=== PATIENT | female | born 1985 | race Caucasian/White ===

== ENCOUNTER 2018-02-10 06:59 | Inpatient (IN) | payer OTHER, SELFPAY ==
[2018-02-10] MEDS: Lactated Ringers 1,000 ML 50 ML IV ×3 (07:25→13:26)
[2018-02-10 07:33] VITALS: BMI 30.3
[2018-02-10 07:52] LABS: Hematocrit 35.4 % (37-47); Hemoglobin 12.2 g/dl (12.0-15.0); Mean Corp Hgb Conc 34.5 g/gl (32-36); Mean Corpuscular Hgb 30.7 pg (27.0-32.0); Mean Corpuscular Volume 88.9 fL (81-99); Mean Platelet Vol. 10.5 fl (6.2-12.0); Platelet Count 164 K/mm3 (150-450); RBC Distribution Width CV 14.1 % (11.6-14.6); Red Blood Count 3.98 M/mm3 (4.2-5.4); White Blood Count 6.9 K/mm3 (4.4-11.0)
[2018-02-10 07:53] LABS: Scan Indicated on CBC? Y/N NO
[2018-02-10 08:05] LABS: Bedside Glucose 76 mg/dL (70-110)
[2018-02-10] MEDS: Oxytocin 30 units/NS 500 ml 30 UNITS/500 ML IV.SOLN IV (08:07)
[2018-02-10 08:56] LABS: Bedside Glucose 80 mg/dL (70-110)
--- NOTE | 2018-02-10 11:09 | PCM.HP.OB ---
History Date of Admission: 02/10/18 Final TANIYA: 02/10/18 Final TANIYA Source: US <20 weeks Gestational age: 40 Weeks and 0 Days History of this : 32-year-old 2 para 1 female presents at 40 weeks with EDC of 03/2018 by first trimester ultrasound alone presents for induction of labor due to well-controlled gestational diabetes class A1. She has had no significant problems with this Pertinent Past Medical History: Asthma, atrial septal defect as a child that was repaired, Past surgical history: Repair of septal defect as a child Family medical history: Patient's mother has factor V Leyden mutation and has had strokes Her 's family has family history of cystic fibrosis Obstetrical history: One previous without difficulty current rpegnancy complicated to date by GDMA1 Allergies No Known Allergies Allergy (Verified 02/10/18 07:33) Current Medications Acetaminophen (Tylenol) 325 - 650 mg PO Q4H PRN PRN PRN Reason: PAIN OR FEVER >100.4F Al Hydroxide/Mg Hydroxide (Mylanta Ii) 15 - 30 ml PO Q4H PRN PRN PRN Reason: INDIGESTION Citric Acid/Sodium Citrate (Bicitra) 30 ml PO UD PRN Dextrose (D50w Syringe) 0 gm IV X1 PRN; Protocol PRN Reason: Hypoglycemia Glucagon () 1 mg IM .X1 PRN PRN Reason: Hypoglycemia Oxytocin/Sodium Chloride () 30 units in 500 mls @ 1 mls/hr IV .Q500H [facility] Last Admin: 02/10/18 08:07 Dose: 1 mls/hr Lactated Ringer's () 1,000 mls @ 50 mls/hr IV .Q20H [facility] Last Admin: 02/10/18 10:04 Dose: 50 mls/hr Penicillin G Potassium/Dextrose (Penicillin G Potassium) 3 mu in 50 mls @ 100 mls/hr IV Q4H [facility] Nalbuphine HCl (Nubain) 5 - 10 mg IV Q3H PRN PRN PRN Reason: PAIN (4-10/10) Ondansetron HCl (Zofran) 4 mg IV Q8H PRN PRN PRN Reason: NAUSEA Promethazine HCl (Phenergan Iv) 6.25 - 12.5 mg IV Q4H PRN PRN; Protocol PRN Reason: IF NAUSEA PERSISTS Sodium Chloride () 5 - 15 ml IV UD [facility] Last Admin: 02/10/18 07:58 Dose: Not Given Smoking Status: Never smoker Alcohol: Occasional - not when Drug Use: none Number of Fetus(es): 1 Review of Systems Constitutional: Denies: Anorexia, Fever Cardiovascular: Denies: Chest Pain Respiratory: Denies: Cough Skin: Denies: Rash Physical Exam General: Alert, Cooperative, No apparent distress Cardiovascular: Regular rate Lungs: Normal air movement Abdomen: Soft, Non Tender, Non-Distended, Gravid, Appropriate for Gestational Age Extremities:: No edema Estimated gestational size: Appropriate for gestational size Presentation: Cephalic Cervix Dilation (cm): 3 - upon admission Station: -2 Effacement (%): 60 Assessment/Plan Cervix is now 4, 70, -2 station, artificial rupture membranes was performed with return of moderate amount of clear fluid. Estimated weight is less than 4500 g and pelvis clinically adequate to expect vaginal delivery. Estimated weight by ultrasound approximately 50th percentile Assessment and plan: 32-year-old 2 para 1 female at 40 weeks gestation for induction of labor due to gestational diabetes #1. Pitocin induction of labor and expect vaginal delivery may have epidural or nitrous oxide or Nubain as needed for pain control Risk benefits and alternatives to injection were discussed with patient her questions were answered to her satisfaction, and she desires to proceed.
--- NOTE | 2018-02-10 11:19 | HP.PCM_ITS ---
History Date of Admission: 02/10/18 Final TANIYA: 02/10/18 Final TANIYA Source: US <20 weeks Gestational age: 40 Weeks and 0 Days History of this : 32-year-old 2 para 1 female presents at 40 weeks with EDC of 03/2018 by first trimester ultrasound alone presents for induction of labor due to well- controlled gestational diabetes class A1. She has had no significant problems with this Pertinent Past Medical History: Asthma, atrial septal defect as a child that was repaired, Past surgical history: Repair of septal defect as a child Family medical history: Patient's mother has factor V Leyden mutation and has had strokes Her 's family has family history of cystic fibrosis Obstetrical history: One previous without difficulty current rpegnancy complicated to date by GDMA1 Allergies No Known Allergies Allergy (Verified 02/10/18 07:33) Current Medications Acetaminophen (Tylenol) 325 - 650 mg PO Q4H PRN PRN PRN Reason: PAIN OR FEVER >100.4F Al Hydroxide/Mg Hydroxide (Mylanta Ii) 15 - 30 ml PO Q4H PRN PRN PRN Reason: INDIGESTION Citric Acid/Sodium Citrate (Bicitra) 30 ml PO UD PRN Dextrose (D50w Syringe) 0 gm IV X1 PRN; Protocol PRN Reason: Hypoglycemia Glucagon () 1 mg IM .X1 PRN PRN Reason: Hypoglycemia Oxytocin/Sodium Chloride () 30 units in 500 mls @ 1 mls/hr IV .Q500H [facility] [place] Last Admin: 02/10/18 08:07 Dose: 1 mls/hr Lactated Ringer's () 1,000 mls @ 50 mls/hr IV .Q20H [facility] [place] Last Admin: 02/10/18 10:04 Dose: 50 mls/hr Penicillin G Potassium/Dextrose (Penicillin G Potassium) 3 mu in 50 mls @ 100 mls/hr IV Q4H [facility] Nalbuphine HCl (Nubain) 5 - 10 mg IV Q3H PRN PRN PRN Reason: PAIN (4-10/10) Ondansetron HCl (Zofran) 4 mg IV Q8H PRN PRN PRN Reason: NAUSEA Promethazine HCl (Phenergan Iv) 6.25 - 12.5 mg IV Q4H PRN PRN; Protocol PRN Reason: IF NAUSEA PERSISTS Sodium Chloride () 5 - 15 ml IV UD [facility] Last Admin: 02/10/18 07:58 Dose: Not Given Smoking Status: Never smoker Alcohol: Occasional - not when Drug Use: none Number of Fetus(es): 1 Review of Systems Constitutional: Denies: Anorexia, Fever Cardiovascular: Denies: Chest Pain Respiratory: Denies: Cough Skin: Denies: Rash Physical Exam General: Alert, Cooperative, No apparent distress Cardiovascular: Regular rate Lungs: Normal air movement Abdomen: Soft, Non Tender, Non-Distended, Gravid, Appropriate for Gestational Age Extremities:: No edema Estimated gestational size: Appropriate for gestational size Presentation: Cephalic Cervix Dilation (cm): 3 - upon admission Station: -2 Effacement (%): 60 Assessment/Plan Cervix is now 4, 70, -2 station, artificial rupture membranes was performed with return of moderate amount of clear fluid. Estimated weight is less than 4500 g and pelvis clinically adequate to expect vaginal delivery. Estimated weight by ultrasound approximately 50th percentile Assessment and plan: 32-year-old 2 para 1 female at 40 weeks gestation for induction of labor due to gestational diabetes #1. Pitocin induction of labor and expect vaginal delivery may have epidural or nitrous oxide or Nubain as needed for pain control Risk benefits and alternatives to injection were discussed with patient her questions were answered to her satisfaction, and she desires to proceed.
[2018-02-10 12:41] LABS: Bedside Glucose 81 mg/dL (70-110)
[2018-02-10] MEDS: fentaNYL-bupivacaine (epidural) 100 ML BAG EPIDURAL (13:28)
[2018-02-10] MEDS: Oxytocin 30 units/NS 500 ml 30 UNITS/500 ML IV.SOLN 334 UNITS IV (15:11)
--- NOTE | 2018-02-10 15:32 | PCM.OB.VAG ---
Vaginal Delivery Maternal Presentation: Medically Indicated Induction Method of Induction: Pitocin, Amniotomy Amniotic Membrane Rupture Type: Artificial Amniotic Fluid Description: Clear Final TANIYA: 02/10/18 Final TANIYA Source: US <20 weeks Gestational age: 40 Weeks and 0 Days Date of Procedure: 02/10/18 Pre-Operative Diagnosis: GDM A1, labor Post-Operative Diagnosis: same Surgery/ Procedure Performed: Spontaneous Vaginal Delivery Type of Anesthesia: Epidural Description of Procedure: A vigorous male infant was delivered away over a second-degree perineal laceration. The remainder the was delivered with maternal pushing and gentle traction only in less than 15 seconds. The Pitocin infusion was initiated for active management of the third stage. The cord was clamped and cut after 1 minute. The was attended to by the waiting nursing staff. The placenta was delivered spontaneously and intact. The cervix and vagina were intact. The second-degree perineal laceration was repaired with 3-0 Vicryl suture in a running standard fashion. Sponge and needle counts were correct. A vaginal sweep was completed by me. Presentation: NIGEL Placental Delivery Description: Spontaneous Placenta Disposition: [facility] Cord Vessel Description: 3 Vessels Cord Entanglement: None Drain: Maldonado to straight drain Estimated Blood Loss: 350 cc A gender: Male (1 minute): 8 (5 minute): 9 Episiotomy Description: None Laceration: 2nd degree Medications given after delivery: IV Pitocin Complications: None
[2018-02-10] MEDS: Oxytocin 30 units/NS 500 ml 30 UNITS/500 ML IV.SOLN 167 UNITS IV (15:41)
[2018-02-10 16:25] LABS: Bedside Glucose 82 mg/dL (70-110)
[2018-02-10 17:35] LABS: Bedside Glucose 64 mg/dL (70-110)
[2018-02-10 18:06] VITALS: BP 127/60; PULSE 58; RESP 16; TEMP 36.6; O2SAT 99
[2018-02-10] MEDS: Naproxen 250 MG Tablet PO (22:34)
[2018-02-11] VITALS: BP 102/57; PULSE 62; RESP 16; TEMP 36.6
[2018-02-11 04:00] VITALS: PULSE 60; RESP 15; TEMP 36.6
[2018-02-11 07:51] LABS: Bedside Glucose 67 mg/dL (70-110)
[2018-02-11] MEDS: Naproxen 250 MG Tablet PO ×2 (07:57→17:21)
--- NOTE | 2018-02-11 08:54 | PN.OBGYN_ITS ---
Subjective: pain well controlled, average lochia. is going well - Physical Exam General: Alert, Cooperative, No apparent distress Vital Signs Temp Pulse Resp BP Pulse Ox 97.9 F 60 15 102/57 L 99 02/11/18 04:00 02/11/18 04:00 02/11/18 04:00 02/11/18 00:00 02/10/18 18:06 Oxygen Delivery Method Room Air Weight: 82.645 kg Body Mass Index (BMI) 30.3 Intake and Output for Last 24 Hours 02/09/18 02/10/18 02/11/18 23:59 23:59 23:59 Intake Total 1605 / 1605 Output Total 1450 / 1450 450 / 450 Balance 155 / 155 -450 / -450 Laboratory Tests Past 24 Hrs 02/10/18 02/10/18 07:25 18:30 Blood Type B NEGATIVE Antibody Screen NEGATIVE Screen NEGATIVE Baby's Blood Type O POSITIVE Baby's GARRISON NEGATIVE POC Glucose 02/11/18 02/10/18 02/10/18 07:45 16:17 12:29 POC Glucose 67 L 82 81 02/10/18 02/10/18 09:50 08:51 POC Glucose 64 L 80 Medical Necessity - Tobacco Use Smoking Status: Never smoker Assessment/Plan PPD#1 doing well routine senior living tomorrow due to G BS + status
--- NOTE | 2018-02-11 08:56 | DCINST_ITS ---
Discharge Diet: No Restrictions Discharge Activity: Return to Normal Activity, May not drive while taking narcotic pain medications., May Shower May resume sexual activity in: 4-6 weeks Additional Activity Instructions:: Nothing in the vagina for 4-6 weeks. You may return to work/school in 6 weeks. Call your doctor if your incision/area has: Continuous Slow Oozing, Sudden Increased Bleeding, Increased Pain/ Swelling, Increased Redness, Foul Smelling Discharge Additional Instructions: If you experience any of the following, contact your healthcare provider. * Bleeding that soaks a pad every hour for 2 hours * Fever 100.4 or higher * Unrelieved incision or abdominal pain * Swelling, redness, discharge or bleeding from your incision or episiotomy site * Your incision begins to separate * Problems urinating (including inability to urinate or burning while urinating) . * Visual changes * Severe headache * Flu-like symptoms * Pain or redness in one of both of your breasts * Pain, warmth, tenderness or swelling in your legs, especially the calf area * Frequent nausea and vomiting * Symptoms of depression or anxiety If you experience any of the following, call 911 or go to the nearest Emergency Room. * Chest pain * Problems breathing * Seizure activity * Partial or complete paralysis of a body part, slurred speech, weakness or drooping of the face, or a sudden inability to walk or hold your balance Allergies/Adverse Reactions: Allergies No Known Allergies Allergy (Verified 02/10/18 07:33) Medications to take at Discharge Vits [Prenatabs FA ] 1 tablet PO DAILY 06/26/14 Ibuprofen [Motrin] 600 mg PO Q6H PRN #60 tab 02/11/18 The following prescriptions were given: Ibuprofen [Motrin] 600 mg PO Q6H PRN #60 tab PRN Reason: Pain Orders to be completed after discharge: Electric breast pump Location: None Selected Please Follow Up With: Leana Olmos MD - [phone] When: Call to make an appointment with your doctor in 6 weeks. If you had elevated Blood Pressure or 4th degree laceration you will need to be seen in 2 weeks. Primary Care Physician: Twan Montemayor [Primary Care Provider] -
[2018-02-11 09:00] VITALS: BP 119/68; PULSE 70; RESP 18; TEMP 36.4
[2018-02-11 15:53] VITALS: BP 115/70; PULSE 50; RESP 16; TEMP 36.7
[2018-02-11 19:50] VITALS: BP 120/64; PULSE 52; RESP 18; TEMP 36.8; O2SAT 96
[2018-02-12 02:00] VITALS: BP 114/66; PULSE 48; RESP 18; TEMP 36.6; O2SAT 98
[2018-02-12] MEDS: Acetaminophen 500 MG Tablet 1000 MG PO (02:07)
[2018-02-12] MEDS: Naproxen 250 MG Tablet PO (06:03)
--- NOTE | 2018-02-12 06:39 | PCM.PN.OB ---
Subjective: Patient sitting up in bed finishing discharge paperwork and watching discharge video teaching. Patient desires discharge to home today. Denies any other issues or concerns Objective: breasts soft, filling, + colostrum able to be hand expressed scant rubra lochia, perineum well-approximated - Physical Exam General: Alert, Oriented x3, Cooperative HEENT: Atraumatic, Normocephalic Lungs: Clear to auscultation, Normal air movement Cardiovascular: Regular rate, No murmurs Abdomen: Soft, Non Tender, No Hepato-splenomegaly, Passing Flatus Extremities: No edema, Capillary Refill Less than 3 Seconds, No Calf Tenderness Skin: No rashes, No breakdown Neurological: Cranial nerves II-XII grossly intact Psych/Mental Status: Normal Affect, Appropriate, Alert and oriented to time, place, person, mood and affect Vital Signs Temp Pulse Resp BP Pulse Ox 97.9 F 48 L 18 114/66 98 02/12/18 02:00 02/12/18 02:00 02/12/18 02:00 02/12/18 02:00 02/12/18 02:00 Oxygen Delivery Method Room Air Weight: 182 lb 3.2 oz Body Mass Index (BMI) 30.3 Intake and Output for Last 24 Hours 02/10/18 02/11/18 02/12/18 23:59 23:59 23:59 Intake Total 1605 / 1605 Output Total 1450 / 1450 450 / 450 Balance 155 / 155 -450 / -450 POC Glucose 02/11/18 07:45 POC Glucose 67 L Medical Necessity - Tobacco Use Smoking Status: Never smoker Assessment/Plan A: 32 y/o s/p , PPD #2, Normal PP Course P: 1) Discharge patient to home pending discharge 2) Anticipatory discharge teaching done 3) RTC for 6 week PP visit to [facility] for 6 wk PP visit Reta Neves CNM
--- NOTE | 2018-02-12 06:49 | PN.OBGYN_ITS ---
Subjective: Patient sitting up in bed finishing discharge paperwork and watching discharge video teaching. Patient desires discharge to home today. Denies any other issues or concerns Objective: breasts soft, filling, + colostrum able to be hand expressed scant rubra lochia, perineum well-approximated - Physical Exam General: Alert, Oriented x3, Cooperative HEENT: Atraumatic, Normocephalic Lungs: Clear to auscultation, Normal air movement Cardiovascular: Regular rate, No murmurs Abdomen: Soft, Non Tender, No Hepato-splenomegaly, Passing Flatus Extremities: No edema, Capillary Refill Less than 3 Seconds, No Calf Tenderness Skin: No rashes, No breakdown Neurological: Cranial nerves II-XII grossly intact Psych/Mental Status: Normal Affect, Appropriate, Alert and oriented to time, place, person, mood and affect Vital Signs Temp Pulse Resp BP Pulse Ox 97.9 F 48 L 18 114/66 98 02/12/18 02:00 02/12/18 02:00 02/12/18 02:00 02/12/18 02:00 02/12/18 02:00 Oxygen Delivery Method Room Air Weight: 182 lb 3.2 oz Body Mass Index (BMI) 30.3 Intake and Output for Last 24 Hours 02/10/18 02/11/18 02/12/18 23:59 23:59 23:59 Intake Total 1605 / 1605 Output Total 1450 / 1450 450 / 450 Balance 155 / 155 -450 / -450 POC Glucose 02/11/18 07:45 POC Glucose 67 L Medical Necessity - Tobacco Use Smoking Status: Never smoker Assessment/Plan A: 32 y/o s/p , PPD #2, Normal PP Course P: 1) Discharge patient to home pending discharge 2) Anticipatory discharge teaching done 3) RTC for 6 week PP visit to [facility] for 6 wk PP visit Reta Neves CNM
[2018-02-12 08:34] VITALS: BP 120/58; PULSE 58; RESP 16; TEMP 36.6; O2SAT 99
== END 2018-02-12 10:10 | disposition home or self-care (01) | DRG 775 ==
PROVIDERS: Admitting Provider Obstetrics & Gynecology; Family Provider Family Medicine; PCP Family Medicine; Visit Provider Obstetrics & Gynecology
DX: O24.420 Gestational diabetes mellitus in childbirth, diet controlled (principal); O70.1 Second degree perineal laceration during delivery; Z37.0 Single live birth; Z3A.40 40 weeks gestation of pregnancy
CPT/HCPCS: 59025; 59050; 82962; 85027; 85461; 86850; 86900; 90384; 99218; J7120; G0378; J2790

== ENCOUNTER → 2024-09-01 | Outpatient (CLI) | payer OTHER, SELFPAY ==
--- NOTE | 2024-09-01 | IMM_PTH ---
PATHOLOGY RESULTS PATIENT: SEAN LILLY LOC: [facility] U#:[id number] AGE/SX: 39/F ROOM: RE09/01/[address]: Dr. Emeli Alarcon DO : 1985 BED: DIS: 09/01/2024 SPEC #: [id number] RECD: 09/05/24 11:31 STATUS: ALYSSA RAFFAELE #: [id number] JEANMARIE: 09/01/24 00:[address]: Emeli Alarcon DEPT: IMMUNOHISTOCHEMISTRY RECD BY: Eliecer Bianchi ENTERED: 09/05/24 11:31 SP TYPE: IMMUNO OTHR DR: Dr. Twan Montemayor MD Tissues: Uterine cervix, NOS Procedures: p16 (initial) KI-67 (add) PHYSICIAN & INSTITUTION [place] [id number] SPECIMEN INFORMATION: Tissue Source: 4o'clock cervix Clinical Info: HPV+ Specimen Number: [id number] CPT code: 56098,52680 METHODOLOGY: Deparaffinized sections of prefer/formalin-fixed tissue or PAP/DQ stained slides are incubated with monoclonal/polyclonal antibodies/oligonucleotide probes. Localization is made via biotin free immunoperoxidase method. Appropriate controls are performed and reacted as expected. Results on target cell population are indicated in the following table: RESULTS: ANTIBODY / CLONE RESULT P16 (E6H4) positive, rare cells, patchy staining Ki-67 (30-9) positive, basal layer only These tests were developed and their performance characteristics determined by [facility]. They may not have been cleared or approved by the U.S. Food and Drug Administration. The FDA has determined that such clearance or approval is not necessary. The above immunohistochemical/dualISH markers are ordered and reviewed by the Pathologist. INTERPRETATION: Cervix, 4o'clock, biopsy: Negative for dysplasia. 09/06/2024
--- NOTE | 2024-09-01 14:00 | CER_PTH ---
PATHOLOGY RESULTS PATIENT: SEAN [facility]ILLY [id number] AGE/SX: 39/F ROOM: RE09/01/[address]: Dr. Emeli Alarcon DO : 1985 BED: DIS: 09/01/2024 SPEC #: [id number] RECD: 09/01/24 15:05 STATUS: ALYSSA YENJony #: [id number] JEANMARIE: 09/01/24 14:[address]: Emeli Alarcon DEPT: SURGICAL PATHOLOGY RECD BY: Gordo Kaur ENTERED: 09/04/24 09:16 SP TYPE: CERV OTHR DR: Dr. Twan Montemayor MD Tissues: Uterine cervix, NOS Procedures: Surgery Specimen Level IV HEADER OPERATION: Colposcopy PRE-OP DIAGNOSIS: HPV+ TISSUE SUBMITTED: 4o'clock cervix MICROSCOPIC DIAGNOSIS Cervix, 4o'clock, biopsy: Negative for dysplasia. Acute and chronic inflammation and squamous dysplasia. See comment. 09/05/2024 COMMENT Immunohistochemistry ([id number]) for surrogate HPV marker (p16) supports the above diagnosis. This case has been reviewed in consultation with Dr. Patrick who concurs with the above diagnosis. IDC:PW MICROSCOPIC DESCRIPTION Slides are reviewed. GROSS DESCRIPTION Received in fixative is one container labeled with the patient's name and designated 4o'clock. The specimen consists of two irregular fragments of light mejia soft tissue that in aggregate measures 0.4 x 0.3 x 0.1 cm. The specimen is totally submitted in one cassette. 09/04/2024 TC:5 CPT:25300
--- NOTE | 2024-09-01 14:00 | CER_PTH ---
PATHOLOGY RESULTS PATIENT: [facility] LILLY [id number] AGE/SX: 39/F ROOM: RE09/01/[address]: Dr. Emeli Alarcon DO : 1985 BED: DIS: 09/01/2024 SPEC #: [id number] RECD: 09/01/24 15:05 STATUS: ALYSSA YENJony #: [id number] JEANMARIE: 09/01/24 14:[address]: Emeli Alarcon DEPT: SURGICAL PATHOLOGY RECD BY: Gordo Kaur ENTERED: 09/04/24 09:16 SP TYPE: CERV OTHR DR: Dr. Twan Montemayor MD Tissues: Uterine cervix, NOS Procedures: Surgery Specimen Level IV HEADER OPERATION: Colposcopy PRE-OP DIAGNOSIS: HPV+ TISSUE SUBMITTED: 4o'clock cervix MICROSCOPIC DIAGNOSIS Cervix, 4o'clock, biopsy: Negative for dysplasia. Acute and chronic inflammation and squamous metaplasia. See comment. 09/05/2024 COMMENT Immunohistochemistry ([id number]) for surrogate HPV marker (p16) supports the above diagnosis. This case has been reviewed in consultation with Dr. Patrick who concurs with the above diagnosis. IDC:PW MICROSCOPIC DESCRIPTION Slides are reviewed. GROSS DESCRIPTION Received in fixative is one container labeled with the patient's name and designated 4o'clock. The specimen consists of two irregular fragments of light mejia soft tissue that in aggregate measures 0.4 x 0.3 x 0.1 cm. The specimen is totally submitted in one cassette. 09/04/2024 TC:5 CPT:49926
--- OUTSIDE RECORDS SUMMARY | 2024-09-01 15:25 | XMS RPT_ITS | CCD ---
Author Organization [facility] CliniSyme Care Team Providers Care Plant Maintenance Supervisor Name Role Phone SATELLITE BEACH, PACO Attending Unavailable HILLS, PACO Primary Care Unavailable HILLS, PACO Admitting Unavailable ELSA PEÑA DR Attending Unavailable CASEY, ELSA HERNANDEZ Primary Care Unavailable CASEY, ELSA HERNANDEZ Admitting Unavailable HILLS, PACO Consulting Unavailable PROVIDER, UNKNOWN Consulting Unavailable HILLS, PACO Attending Unavailable HILLS, PACO Consulting Unavailable S[place]LLITE [place], PACO Primary Care Unavailable S[place], PACO Admitting Unavailable PROVIDER, UNKNOWN Consulting Unavailable S[place], PACO Attending Unavailable S[place]LL[place], PACO Admitting Unavailable S[place], PACO Consulting Unavailable [place], PACO Primary Care Unavailable PROVIDER, UNKNOWN Consulting Unavailable HILLS, PACO Attending Unavailable HILLS, PACO Admitting Unavailable S[place]LL[place], PACO Consulting Unavailable S[place], PACO Primary Care Unavailable PROVIDER, UNKNOWN Consulting Unavailable S[place], PACO Attending Unavailable HILLS, PACO Consulting Unavailable HILLS, PACO Primary Care Unavailable HILLS, PACO Admitting Unavailable PROVIDER, UNKNOWN Consulting Unavailable HILLS, PACO Attending Unavailable S[place]LL[place], PACO Admitting Unavailable S[place]LL[place], PACO Consulting Unavailable S[place], PACO Primary Care Unavailable PROVIDER, UNKNOWN Consulting Unavailable S[place], PACO Attending Unavailable S[place], PACO Consulting Unavailable S[place], PACO Primary Care Unavailable [place], PACO Admitting Unavailable PROVIDER, UNKNOWN Consulting Unavailable Problems Active Problems Problem Classification Problem Date Documented Da te Episodic/Chronic Nutritional deficiencies (1 source) Vitamin D deficiency, unspecified; Translations: [Vitamin D deficiency, unspecified] Onset: 01-14-2024 Chronic Past or Other Problems Problem Classification Problem Date Documented Date Episodic/Chronic Heart valve disorders (1 source) Cardiac murmur, unspecified; Translations: [Cardiac murmur, unspecified] Onset: 01-25-2024 Episodic Other aftercare (1 source) Other roasterman (current) drug therapy; Translations: [Other retirement (current) drug therapy] Onset: 01-31-2024 Episodic Other circulatory disease (3 sources) Personal history of other diseases of the circulatory system; Translations: [Personal history of other diseases of the circulatory system] Onset: 01-25-2024 Episodic Other non-traumatic joint disorders (1 source) Pain in right shoulder; Translations: [Pain in right shoulder] Onset: 02-29-2024 Episodic Other screening for suspected conditions (not mental disorders or infectious disease) (3 sources) Encounter for screening for cardiovascular disorders; Translations: [Encounter for screening for cardiovascular disorders] Onset: 01-14-2024 Episodic Residual codes; unclassified (2 sources) Family history of diseases of the blood and blood-forming organs and certain disorders involving the immune mechanism; Translations: [Family history of diseases of the blood and blood-forming organs and certain disorders involving the immune mechanism] Onset: 01-25-2024 Episodic Sprains and strains (4 sources) Superior glenoid labrum lesion of right shoulder, initial encounter; Translations: [Unspecified sprain of right shoulder joint, initial encounter] Onset: 02-29-2024 Episodic Results Test Name Value Interpretation Reference Range Facil ity FACTOR V LEIDEN/PCR [CCL]on 01-28-2024 FV Leiden Report Factor V Leiden PCR Normal [facility] Comment on above: Result Comment: Ephraim melgoza Accession Number: [id number] Result: HETEROZYGOUS FOR Factor V Leiden Interpretation: The DNA sample is positive for one copy of the c.1601G>A variant (legacy name R506Q) in the Factor V (F5) gene. This variant is commonly known as Factor V Leiden. Heterozygosity for Factor V Leiden results in resistance to activated protein C and may impart an increased risk for thromboembolic disease. These results should be interpreted in light of other congenital and acquired risk factors, including , as the risk of thrombosis increases with the presence of two or more concomitant risk factors. Factor V Leiden alone imparts approximately a 4- to 5- fold increased risk for venous thrombosis in heterozygotes. Genetic testing for at-risk family members is available, as clinically indicated. For questions about this result, genetic consultation is recommended. Methodology: Isolated genomic DNA from the patient's blood specimen is evaluated for the c.1601G>A (p.[id number]) variant of the F5 gene [RefSeq NM_000130.4; GRCh38/hg38] by multiplex polymerase chain reaction (PCR) followed by melting curve analysis. Limitations: This assay is designed to detect the c.1601G>A variant in the F5 gene. Uncommon variants or single nucleotide polymorphisms may affect binding of probes and may rarely result in false negative, false positive or indeterminate results. This assay does not detect other disease-associated rare variants on F5 or other causes of thromboembolic disease. Disclaimer: This test was developed and its performance characteristics determined by [facility] [place] ([facility] It has not been cleared or approved by the FDA. -[facility] is regulated under CLIA as certified to perform high- complexity testing. This test is used for clinical purposes. It should not be regarded as investigational or for research. Testing and interpretation performed at [facility], [address] [place] [address]. CLIA Number: [id number] References: 1) Andres R, Chay G, Mike Quinn. The genetics of venous thromboembolism. A meta-analysis involving approximately 120,000 cases and 180,000 controls. Thromb Haemost 2009;102(2):360-70. 2) Inherited Thrombophilias in . ACOG Practice Bulletin.No.197.[place] [employer]nec[employer]. Obstet Gynecol 2018;132:e18-34. 3) Tonja LOCO. Factor V Leiden Thrombophilia. Rocío Med.2011;13(1):1-16. 4) Pharmacogenomics summary [email or web address] As reviewed by Radha Renae, PhD, [place] [address] Rohit Roberto III, M.D. [id number] Performed By: #### 2 12728 #### [facility],[address] [place] [address] CV ECHO COMPLETE W/SALINEon 01-25-2024 CV ECHO COMPLETE W/SALINE [place] [address] Patient: SEAN LILLY Phone#: : 1985 Age: 38 Gender: F Pt. Type: Out Account: [id number] Location: Ordering: [facility] Exam Date: 01/25/2024/10:57 Family Phys: Charge Code: [id number] Physician: Bulloch Order #: [id number] Dose#: PROCEDURE: ECHO COMPLETE WITH SALINE HISTORY: Patient is a 38-year-old female with history of ASD repair INDICATIONS: MURMUR COMPARISON: None. TECHNIQUE: A 2-D ultrasound, color spectral Doppler and M-mode evaluation of the heart and great vessels. PATIENT MEASUREMENTS: Height (in.): 64 BSA: 1.83 Weight (lbs.): 172 BP: 129/65 Railroad Supervisor Of Engines: CURT Saline bubble study performed with 9 cc's of agitated 0.9% NS injected I.V. push according to protocol. M MODE 2D MEASUREMENTS AND CALCULATIONS: LVIDd: 5.45 cm LVIDs: 3.62 cm IVSd: 0.84 cm LVPWd: 0.69 cm LVOT diam: 1.9 cm FS: 33.57 % Ao Root diam: 2.51 cm LA diam: 3.4 cm LA Volume Index: 25.75 ml/m2 LA A4 Area: 15.63 cm2 RA A4 Area: 16.2 cm2 RVDd: 3.67 cm TAPSE: 17 mm DOPPLER MEASUREMENTS AND CALCULATIONS MITRAL MV E MAX mike: 0.75 m/s MV A MAX mike: 0.48 m/s MV E-A ratio: 1.58 Lat Peak E' Mike 14 cm/sec Septal Peak E' MIKE 9 cm/sec E/E' lateral 5.33 Continued Report - Page 2 of 3 Patient: SEAN LILLY Phone#: : 1985 Age: 38 Gender: F Pt. Type: Out Account: [id number] Location: Ordering: [facility] Exam Date: 01/25/2024/10:57 Family Phys: Charge Code: [id number] Physician: Bulloch Order #: [id number] Dose#: E/E' medial 8.47 AORTIC Ao V2 max: 1.03 m/s Ao max P.24 mm[Hg] LV V1 Max 0.77 m/s LV V1 Max PG 2.36 mm[Hg] PULMONIC PA V2 Max 0.91 m/s PA Max PG 3.30 mm[Hg] TRICUSPID TR Max Mike 1.86 m/s TR max PG 14.15 mm[Hg] RVSP 17 mm Hg 2D/M-MODE AND COLOR FLOW LEFT VENTRICLE: Left ventricle is normal in size and thickness. Systolic ejection fraction is 50-55%. There are no regional wall motion abnormality seen. Normal diastolic function WALL MOTION: 1 - Basal anterior: Normal. 7 - Mid anterior: Normal. 13 - Apical anterior: Normal. 2 - Basal anteroseptal: Normal. 8 - Mid anteroseptal: Normal. 14 - Apical septal: Normal. 3 - Basal inferoseptal: Normal. 9 - Mid inferoseptal: Normal. 15 - Apical inferior: Normal. 4 - Basal inferior: Normal. 10-Mid inferior: Normal. 16 - Apical lateral: Normal. 5 - Basal inferolateral: Normal. 11-Mid inferolateral: Normal. 6 - Basal anterolateral: Normal. 12-Mid anterolateral: Normal. RIGHT VENTRICLE: Right ventricle is normal in size and systolic function LEFT ATRIUM: Left atrium is normal size. RIGHT ATRIUM: Right atrium is normal in size. ATRIAL SEPTUM: Agitated saline did not show any eatoj-dl-pyss interatrial shunt at rest and with provocation. MITRAL VALVE: Mitral valve appears normal in structure. There is trivial regurgitation no stenosis seen. TRICUSPID VALVE: Tricuspid valve appears normal in structure. There is trivial regurgitation no stenosis seen. AORTIC VALVE: Aortic valve is trileaflet. There is no regurgitation or stenosis seen. PULMONIC VALVE: Pulmonic valve is normal structure. There is trivial regurgitation and no stenosis seen. AORTIC ROOT: Aortic root is normal in size. AORTIC ARCH: Aortic arch normal in size. DESC THORACIC AORTA: Descending aorta is normal in size. Doppler shows no significant regurgitation or stenosis Continued Report - Page 3 of 3 Patient: SEAN LILLY Phone#: : 1985 Age: 38 Gender: F Pt. Type: Out Account: [id number] Location: Ordering: [facility] Exam Date: 01/25/2024/10:57 Family Phys: Charge Code: [id number] Physician: Bulloch Order #: [id number] Dose#: IVC/SVC: IVC is normal size with more than 50% collapse of inspiration. Estimated atrial pressure is 3 mm Hg. PULMONARY VEINS: Normal pulmonic vein flow PERICARDIUM: There is no pericardial effusion seen CONCLUSION: 1. Left ventricle is normal in size and thickness. Systolic ejection fraction is 50-55% with normal wall motion. 2. There are no significant valvular dysfunction seen 3. Right ventricle is normal in size and systolic function. 4. Agitated saline did not show any aisva-ix-fvpb shunt at rest and with provocation. 5. Estimated right ventricular systolic pressure is 17 mm Hg. Dictated by: JERSON SCHMID MD on 01/25/2024 at 12:15 Approved by: JERSON SCHMID MD on 01/25/2024 at 13:18 Normal [facility] FACTOR V LEIDEN/PCRon 2023 FACTOR V LEIDEN PCR REPORT Normal [facility] Comment on above: Order Comment: Speci men Type: BLOOD SPECIMEN Ordering Facility: [facility] Address: [address] [place] [address] Result Comment: Fact or V Leiden PCR Laboratory Accession Number: [id number] Result: HETEROZYGOUS FOR Factor V Leiden Interpretation: The DNA sample is positive for one copy of the c.1601G>A variant (legacy name R506Q) in the Factor V (F5) gene. This variant is commonly known as Factor V Leiden. Heterozygosity for Factor V Leiden results in resistance to activated protein C and may impart an increased risk for thromboembolic disease. These results should be interpreted in light of other congenital and acquired risk factors, including , as the risk of thrombosis increases with the presence of two or more concomitant risk factors. Factor V Leiden alone imparts approximately a 4- to 5- fold increased risk for venous thrombosis in heterozygotes. Genetic testing for at-risk family members is available, as clinically indicated. For questions about this result, genetic consultation is recommended. Methodology: Isolated genomic DNA from the patient's blood specimen is evaluated for the c.1601G>A (p.[id number];g.[id number]) variant of the F5 gene [RefSeq NM_000130.4; GRCh38/hg38] by multiplex polymerase chain reaction (PCR) followed by melting curve analysis. Limitations: This assay is designed to detect the c.1601G>A variant in the F5 gene. Uncommon variants or single nucleotide polymorphisms may affect binding of probes and may rarely result in false negative, false positive or indeterminate results. This assay does not detect other disease-associated rare variants on F5 or other causes of thromboembolic disease. Disclaimer: This test was developed and its performance characteristics determined by [facility] [place] ([facility]). It has not been cleared or approved by the FDA. -[facility] is regulated under CLIA as certified to perform high- complexity testing. This test is used for clinical purposes. It should not be regarded as investigational or for research. Testing and interpretation performed at [facility], [address] [place] [address]. CLIA Number: [id number] References: 1) Andres R, Chay G, Mike P. The genetics of venous thromboembolism. A meta-analysis involving approximately 120,000 cases and 180,000 controls. Thromb Haemost 2009;102(2):360-70. 2) Inherited Thrombophilias in . ACOG Practice Bulletin.No.197.[place] [employer] Gynec[employer]. Obstet Gynecol 2018;132:e18-34. 3) Tonja LOCO. Factor V Leiden Thrombophilia. Rocío Med.2011;13(1):1-16. 4) Pharmacogenomics summary [email or web address] As reviewed by Radha Renae, PhD, [facility] Performed By: #### F VLEI #### [facility], [place] [id number] [address] [place] [address] [place] CMP with eGFRon 01-14-2024 AGE 38 years Normal [facility] Comment on above: Performed By: #### 2 61733 #### [facility],[address] [place] [address] Albumin [Mass/Vol] 3.8 g/dL Normal 3.4 - 5.0 [facility] Comment on above: Performed By: #### 2 61613 #### [facility],[address] [place] [address] Albumin/Globulin [Mass ratio] 1.0 {ratio} Normal 0.9 - 1.6 [facility] Comment on above: Performed By: #### 2 63492 #### [facility],[address] [place] [address] 76078 ALK PHOS 50 U/L Normal 46 - 116 [facility] Comment on above: Performed By: #### 2 13741 #### [facility],[address] [place] [address]32 ALT [Catalytic activity/Vol] 25 U/L Normal 16 - 63 [facility] Comment on above: Performed By: #### 2 85071 #### [facility],[address] [place] [address]444 Anion gap [Moles/Vol] 9 mmol/L Low 10 - 20 [facility] Comment on above: Performed By: #### 2 15243 #### [facility],[address] [place] [address] 44478 AST [Catalytic activity/Vol] 20 U/L Normal 13 - 39 [facility] Comment on above: Performed By: #### 2 27887 #### [facility],[address] [place] [address] 99438 B/C RATIO 19 ratio Normal 0 - 30 [facility] Comment on above: Performed By: #### 2 29773 #### [facility],[address] [place] [address] 61590 Bilirubin [Mass/Vol] 0.6 mg/dL Normal 0.2 - 1.0 [facility] Comment on above: Performed By: #### 2 13495 #### [facility],[address] [place] [address] 94703 Calcium [Mass/Vol] 9.0 mg/dL Normal 8.5 - 10.1 [facility] Comment on above: Performed By: #### 2 61636 #### [facility],[address] [place], [place] [address] Chloride [Moles/Vol] 104 mmol/L Normal 98 - 107 [facility] Comment on above: Performed By: #### 2 73764 #### [facility],[address] [place], [place] [address] CMP with eGFR Normal [facility] Comment on above: Result Comment: COMP REHENSIVE METABOLIC PANEL Performed By: #### 2 37149 #### [facility],[address] [place] [address] CO2 [Moles/Vol] 31.7 mmol/L Normal 21.0 - 32.0 [facility] Comment on above: Performed By: #### 2 75689 #### [facility],[address] [place] [address] Creatinine [Mass/Vol] 0.85 mg/dL Normal 0.55 - 1.02 [facility] Comment on above: Performed By: #### 2 41824 #### [place] [address] GFR/1.73 sq M.predicted among non-blacks MDRD (S/P/Bld) [Vol rate/Area] mL/min/{1.73_m2} Normal 60 - 999 [facility] Comment on above: Performed By: #### 2 30065 #### [facility],[address] [place] [address] Result Comment: ACCO RDING TO THE NATIONAL KIDNEY DISEASE EDUCATION PROGRAM(NKDE), A NORMAL eGFR IS A VALUE GREATER THAN OR EQUAL TO 60 ML/MIN/1.73 SQ METERS. CHRONIC KIDNEY DISEASE: <60mL/MIN/1.73 SQ METERS KIDNEY FAILURE: <15mL/MIN/1.73 SQ METERS THIS TEST SHOULD ONLY BE USED FOR PATIENTS 18 YEARS OF AGE AND OLDER. Globulin (S) [Mass/Vol] 3.8 g/dL Normal 1.5 - 3.8 [facility] Comment on above: Performed By: #### 2 36801 #### [facility],[address] [place] [address] 91112 Glucose [Mass/Vol] 80 mg/dL Normal 74 - 106 [facility] Comment on above: Performed By: #### 2 19412 #### [facility],[address] [place] [address] 41993 Potassium [Moles/Vol] 4.4 mmol/L Normal 3.5 - 5.1 [facility] Comment on above: Performed By: #### 2 66105 #### [facility],[address] [place] [address] 12112 Protein [Mass/Vol] 7.6 g/dL Normal 6.4 - 8.2 [facility] Comment on above: Performed By: #### 2 99032 #### [facility],[address] [place] [address] 73503 Sodium [Moles/Vol] 140 mmol/L Normal 136 - 145 [facility] Comment on above: Performed By: #### 2 77164 #### [facility],[address] [place] [address] 29118 Urea nitrogen [Mass/Vol] 16 mg/dL Normal 7 - 18 [facility] Comment on above: Performed By: #### 2 93932 #### [facility],[address] [place] [address] 20432 LIPID PROFILEon 01-14-2024 Cholesterol [Mass/Vol] 206 mg/dL Normal 0 - 240 [facility] Comment on above: Performed By: #### 2 78646 #### [facility],[address] [place] [address] 44641 Cholesterol in HDL [Mass/Vol] 50 mg/dL Normal 40 - 60 [facility] Comment on above: Performed By: #### 2 13728 #### [facility],[address] [place] [address] 79318 Cholesterol in LDL [Mass/Vol] 125 mg/dL Normal 0 - 129 [facility] Comment on above: Performed By: #### 2 27500 #### [facility],[address] [place] [address] 69207 Cholesterol.total/ Cholesterol in HDL [Mass ratio] 4.1 {ratio} Normal 0.0 - 5.0 [facility] Comment on above: Performed By: #### 2 33030 #### [facility],[address] [place] [address] 46342 Lipid 1996 panel Normal [facility] Comment on above: Result Comment: LIPI D PROFILE Performed By: #### 2 13765 #### [facility],[address] [place] [address] 02384 Triglyceride [Mass/Vol] 153 mg/dL High 0 - 150 [facility] Comment on above: Performed By: #### 2 31259 #### [facility],[address] [place] [address] 28460 VITAMIN D, 25 HYDROXYon 03-0 VitD 40.40 ng/mL Normal 30.00 - 100 [facility] Comment on above: Result Comment: 25-O HD3 indicates both endogenous production and supplementation. 25-OHD2 is an indicator of exogenous sources, such as diet or supplementation. Therapy is based on measurement of Total 25-OHD, with levels <20 ng/mL indicative of Vitamin D deficiency, while levels between 20 ng/mL and 30 ng/mL suggest insufficiency. Optimal levels are >=30ng/mL. Vitamin D, 25-OH D3 Not Established Vitamin D, 25-OH D2 Not Established Performed By: #### 2 17747 #### [facility],[address] [place] [address]441 [facility] Free T3 [Mass/Vol] 3.5 pg/mL Normal 2.3-4.1 [facility] Comment on above: Order Comment: Speci men Type: BLOOD SPECIMEN Ordering Facility: [facility] Address: [address] [place] [address] Performed By: #### 3 051-0 #### [facility] CLIA [id number] [address] [place] [address] [place] Encounters Encounter Date Encounter Type Care Provider Facility Start: 07-20-2024 End: 07-20-2024 ambulatory [facility] Start: 07-20-2024 Encounter for gyneco logical examination (general) (routine) without abnormal findings [facility] Start: 02-29-2024 End: 05-01-2024 ambulatory ELSA PEÑA [facility] Start: 01-31-2024 End: 01-31-2024 ambulatory [facility] Start: 01-25-2024 End: 01-25-2024 ambulatory [facility] Start: 01-25-2024 End: 01-25-2024 Encounter for general adult medical examination without abnormal findings [facility] Start: 01-14-2024 End: 01-14-2024 ambulatory [facility] Payers Date Payer Category Payer Unknown [id number] 2.16.8 [id number] 1985 Unknown [id number] 2.16.8 [id number] 1985 Unknown [id number] 2.16.8 [id number] 1985 Unknown [id number] 2.16.8 [id number] 1985 Unknown [id number] 2.16.8 [id number]. 1985 Unknown [id number] 2.16.8 [id number] 1985 Unknown [id number] 2.16.8 [id number] 1985 Unknown [id number] 2.16.8 [id number] Unknown [id number] Unknown [id number] Summary Purpose Family History No Family History Records FoundNo Family History Records Found Advance Directives No Advanced Directives Records FoundNo Advanced Directives Records Found Additional Source Comments INFORMATION SOURCE (unrecogn ized section and content) DATE CREATED AUTHOR 01/30/2024 [facility] DATE CREATED AUTHOR AUTHOR'S ORGANIZ ATION 07/22/2024 [facility] FOR RECORDS PERTAINING TO PATIENTS WHO ARE OR HAVE BEEN ENROLLED IN A CHEMICAL DEPENDENCY/SUBSTANCEABUSE PROGRAM, SOME INFORMATION MAY BE OMITTED. This clinical summary was aggregated from multiple sources. Caution should be exercised in using it in the provision of clinical care. This summary normalizes information from multiple sources, and as a consequence, information in this document may materially change the coding, format and clinical context of patient data. In addition, data may be omitted in some cases. CLINICAL DECISIONS SHOULD BE BASED ON THE PRIMARY CLINICAL RECORDS. [facility] [employer] [facility]. provides no warranty or guarantee of the accuracy or completeness of information in this document.
== END | disposition home or self-care (01) ==
LOC: LABSPEC 14:28
PROVIDERS: PCP Family Medicine; Referring Provider Obstetrics & Gynecology; Visit Provider Obstetrics & Gynecology
DX: R87.810 Cervical high risk human papillomavirus (HPV) DNA test positive (principal)
CPT/HCPCS: 88305; 88341; 88342

== ENCOUNTER → 2025-06-29 | Outpatient (CLI) | payer OTHER, SELFPAY ==
--- NOTE | 2025-06-29 12:00 | BI_ITS ---
EXAM: SCRN MAMM (CAD)W/DEYSI BILAT DATE: 06/29/2025 CLINICAL HISTORY: F, Age 40 y/o , SCREEN FOR BREAST CANCER TECHNIQUE: SCRN MAMM (CAD)W/DEYSI BILAT COMPARISON: Baseline examination, no priors. FINDINGS: TISSUE DENSITY: The breasts are heterogeneously dense, which may obscure small masses. The mammogram demonstrates that the patient has dense breasts. Supplemental screening with whole breast ultrasound or MRI may be considered for further evaluation. Bilateral Breast Mammographic Findings: No significant masses, calcifications or other abnormalities are identified. BI/SCRN MAMM (CAD)W/DEYSI BILAT IMPRESSION: There is no mammographic evidence of malignancy. OVERALL FINAL ASSESSMENT BI-RADS 1: NEGATIVE. RECOMMENDATION: Routine annual follow-up in 1 Year A letter with findings and recommendations will be mailed to the patient. Reading Location: [id number]
== END | disposition home or self-care (01) ==
LOC: OPBI 12:01
PROVIDERS: PCP Family Medicine; Referring Provider Obstetrics & Gynecology; Visit Provider Obstetrics & Gynecology
DX: Z12.31 Encounter for screening mammogram for malignant neoplasm of breast (principal)
CPT/HCPCS: 77063; 77067

== ENCOUNTER → 2025-08-31 | Outpatient (CLI) | payer OTHER, SELFPAY ==
--- OUTSIDE RECORDS SUMMARY | 2025-08-31 16:10 | XMS RPT_ITS | CCD ---
Author Organization [facility] CliniSypr Care Team Providers Care Blow Molding Machine Operator Name Role Phone [facility] Attending Unavailable OTIS ORCHARDS, PACO Consulting Unavailable OTIS ORCHARDS, PACO Primary Care Unavailable OTIS ORCHARDS, PACO Admitting Unavailable PROVIDER, UNKNOWN Consulting Unavailable OTIS ORCHARDS, PACO Attending Unavailable OTIS ORCHARDS, PACO Consulting Unavailable OTIS ORCHARDS, PACO Primary Care Unavailable OTIS ORCHARDS, PACO Admitting Unavailable PROVIDER, UNKNOWN Consulting Unavailable OTIS ORCHARDS, PACO Attending Unavailable OTIS ORCHARDS, PACO Consulting Unavailable OTIS ORCHARDS, PACO Primary Care Unavailable OTIS ORCHARDS, PACO Admitting Unavailable PROVIDER, UNKNOWN Consulting Unavailable Dr. Emeli Alarcon DO Attending Provider Dr. Emeli Alarcon DO Referring Provider [facility] [place] Primary Care Provider Emeli Alarcon Attending UnavailTwan Lemon Referring Unavailable [facility] [place] Primary Care Unavailable Emeli Alarcon Attending Unavailabl e [facility] Care Unavailable Emeli Alarcon Referring UnavailEmeli Whalen Attending UnavailTwan Lemon Primary Care Unavailable Emeli Alarcon Referring Unavailabl Twan Cruz Referring Jenny Montemayor, [facility] Care Unavailable Emeli Alarcon Attending Unavailabl Medications Current Medications Medication Drug Class(es) Dates Sig (Normalized) Sig (Original) aspirin 81 mg chewable tablet (1 source) Platelet Aggregation Inhibitor, Nonsteroidal Anti-inflammatory Drug Start: 09-01-2024 take 1 tablet by mouth once daily Aspirin 81 mg tablet,chewable Active 81 mg PO daily September 01, 2024 12:00am ergocalciferol 1.25 mg oral capsule (1 source) Provitamin D2 Compound Start: 09-01-2024 Ergocalciferol (Vitamin D2) (Vitamin D2) 1,250 mcg (50,000 unit) capsule Active 1250 ug PO EVERY WEEK September 01, 2024 12:00am ibuprofen 600 mg oral tablet (1 source) Nonsteroidal Anti-inflammatory Drug Start: 02-11-2018 take 1 tablet by mouth every six hours as needed for pain Ibuprofen 600 MG tablet Active 600 mg PO EVERY 6 HOURS as needed for Pain 60 1 February 11, 2018 12:00am spironolactone 50 mg oral tablet (1 source) Aldosterone Antagonist Start: 09-01-2024 take 1 tablet by mouth once daily Spironolactone 50 mg tablet Active 50 mg PO daily September 01, 2024 12:00am Vitamin B Comp And C No.3 (B Complex Plus Vitamin C) 61-11-54-5-300 mg capsule (1 source) Start: 09-01-2024 Vitamin B Comp And C No.3 (B Complex Plus Vitamin C) 70-61-19-5-300 mg capsule Active 1 NMA PO daily September 01, 2024 12:00am give with food (meal/snack) Completed/Discontinued Medications Medication Drug Class(es) Dates Sig (Normalized) Sig (Original) Vit,Cirk52-Avji-Bf lic (Prenatabs Fa) 1 TABLET tablet (1 source) Start: 06-26-2014 End: 09-01-2024 take 1 tablet by mouth once daily Vit,Prae75-Oheq-Utg ic (Prenatabs Fa) 1 TABLET tablet Discontinued 1 {tbl} PO DAILY June 26, 2014 12:00am September 01, 2024 1:37pm Problems Active Problems Problem Classification Problem Date Documented Date Episodic/Chronic Administrative/social admission (1 source) Person with feared health complaint in whom no diagnosis is made; Translations: [Person with feared health complaint in whom no diagnosis is made] Onset: 06-07-2025 Episodic Coagulation and hemorrhagic disorders (1 source) Heterozygous Factor V Leiden mutation; Translations: [Activated protein C resistance] 09-01-2024 Chronic Nutritional deficiencies (1 source) Vitamin D deficiency, unspecified; Translations: [Vitamin D deficiency, unspecified] Onset: 01-08-2025 Chronic Other endocrine disorders (1 source) Polycystic ovarian syndrome; Translations: [Polycystic ovarian syndrome] Onset: 01-08-2025 Chronic Other screening for suspected conditions (not mental disorders or infectious disease) (2 sources) Encounter for screening for cardiovascular disorders; Translations: [Encounter for screening mammogram for malignant neoplasm of breast] Onset: 01-08-2025 Episodic Past or Other Problems Problem Classification Problem Date Documented Date Episodic/Chronic Sexually transmitted infections (not HIV or hepatitis) (2 sources) Human papillomavirus deoxyribonucleic acid test positive, high risk on cervical specimen; Translations: [Cervical high risk human papillomavirus (HPV) DNA test positive] Onset: 10-11-2024 09-01-2024 Episodic Viral infection (1 source) Papillomavirus as the cause of diseases classified elsewhere; Translations: [Papillomavirus as the cause of diseases classified elsewhere] Onset: 10-02-2024 Episodic Results Test Name Value Interpretation Reference Range Facil ity Breast imaging reportOrdered By: Rosalind Acosta on 06-29-2025 Study report [facility] Imaging Services [address] [place] [address] SCRN MAMM (CAD)W/DEYSI BILAT MR#: [id number] Acct: [id number] Name: JESSICA LILLYClarisse PAUL Rep #: [id number] : 1985 F 40 From: Barbara Acosta MD PCP: Paco Pimentel PA-C Status: JULIAN AVALOS Study:SCRN MAMM (CAD)W/DEYSI BILAT Date of Exa m: 06/29/25 Exam# [id number] Ordering Dr: Emeli Borjas DO EXAM: SCRN MAMM (CAD)W/DEYSI BILAT DATE: 06/29/2025 CLINICAL HISTORY: F, Age 40 y/o , SCREEN FOR BREAST CANCER TECHNIQUE: SCRN MAMM (CAD)W/DEYSI BILAT COMPARISON: Baseline examination, no priors. FINDINGS: TISSUE DENSITY: The breasts are heterogeneously dense, which may obscure small masses. The mammogram demonstrates that the patient has dense breasts. Supplemental screening with whole breast ultrasound or MRI may be considered for further evaluation. Bilateral Breast Mammographic Findings: No significant masses, calcifications or other abnormalities are identified. BI/SCRN MAMM (CAD)W/DEYSI BILAT IMPRESSION: There is no mammographic evidence of malignancy. OVERALL FINAL ASSESSMENT BI-RADS 1: NEGATIVE. RECOMMENDATION: Routine annual follow-up in 1 Year A letter with findings and recommendations will be mailed to the patient. Reading Location: [facility] CC: KATRIN Pimentel; Dr. Emeli Alarcon DO ~ Digital X Ray Service Engineer: Signed [facility] SCRN MAMM (CAD)W/DEYSI BILATo n 06-29-2025 SCRN MAMM (CAD)W/DEYSI BILAT [facility] Imaging Services [address] [place] [address] SCRN MAMM (CAD)W/DEYSI BILAT MR#: [id number] Acct: [id number] Name: SEAN LILLY Rep #: [id number] : 1985 F 40 From: Rosalind Acosta MD PCP: Paco Pimentel PA-C Status: REG CLI Study: SCRN MAMM (CAD)W/DEYSI BILAT Date of Exam: 06/09 01/02 Exam# [id number] Ordering Dr: Emeli Alarcon DO EXAM: SCRN MAMM (CAD)W/DEYSI BILAT DATE: 06/29/2025 CLINICAL HISTORY: F, Age 40 y/o , SCREEN FOR BREAST CANCER TECHNIQUE: SCRN MAMM (CAD)W/DEYSI BILAT COMPARISON: Baseline examination, no priors. FINDINGS: TISSUE DENSITY: The breasts are heterogeneously dense, which may obscure small masses. The mammogram demonstrates that the patient has dense breasts. Supplemental screening with whole breast ultrasound or MRI may be considered for further evaluation. Bilateral Breast Mammographic Findings: No significant masses, calcifications or other abnormalities are identified. BI/SCRN MAMM (CAD)W/DEYSI BILAT IMPRESSION: There is no mammographic evidence of malignancy. OVERALL FINAL ASSESSMENT BI-RADS 1: NEGATIVE. RECOMMENDATION: Routine annual follow-up in 1 Year A letter with findings and recommendations will be mailed to the patient. Reading Location: [facility] CC: KATRIN Pimentel; Dr. Emeli Alarcon DO Digital X Ray Service Engineer: Signed Normal [facility] CMP with eGFRon 01-08-2025 AGE 39 years Normal [facility] Comment on above: Performed By: #### 2 77238 #### [facility],[address] [place] [address] 54560 Albumin [Mass/Vol] 3.7 g/dL Normal 3.4 - 5.0 [facility] Comment on above: Performed By: #### 2 93240 #### [facility],[address] [place] [address] 41097 Albumin/Globulin [Mass ratio] 1.1 {ratio} Normal 0.9 - 1.6 [facility] Comment on above: Performed By: #### 2 20179 #### [facility],[address] [place] [address] 20451 ALK PHOS 43 U/L Low 46 - 116 [facility] Comment on above: Performed By: #### 2 70373 #### [facility],[address] [place] [address] 77034 ALT [Catalytic activity/Vol] 25 U/L Normal 16 - 63 [facility] Comment on above: Performed By: #### 2 69340 #### [facility],[address] [place] [address] 88560 Anion gap [Moles/Vol] 9 mmol/L Low 10 - 20 [facility] Comment on above: Performed By: #### 2 30372 #### [facility],[address] [place] [address] 25658 AST [Catalytic activity/Vol] 19 U/L Normal 13 - 39 [facility] Comment on above: Performed By: #### 2 23639 #### [facility],[address] [place] [address] 71215 B/C RATIO 18 ratio Normal 0 - 30 [facility] Comment on above: Performed By: #### 2 14310 #### [facility],[address] [place] [address] 31965 Bilirubin [Mass/Vol] 0.5 mg/dL Normal 0.2 - 1.0 [facility] Comment on above: Performed By: #### 2 57683 #### [facility],[address] [place] [address] 20069 Calcium [Mass/Vol] 9.4 mg/dL Normal 8.5 - 10.1 [facility] Comment on above: Performed By: #### 2 60790 #### [facility],[address] [place] [address] 23984 Chloride [Moles/Vol] 103 mmol/L Normal 98 - 107 [facility] Comment on above: Performed By: #### 2 42123 #### [facility],[address] [place], [place] [id number] CMP with eGFR Normal [facility] Comment on above: Result Comment: COMP REHENSIVE METABOLIC PANEL Performed By: #### 2 24275 #### [facility],[address] [place] [address] 11262 CO2 [Moles/Vol] 29.2 mmol/L Normal 21.0 - 32.0 [facility] Comment on above: Performed By: #### 2 67104 #### [facility],[address] [place] [address] 35855 Creatinine [Mass/Vol] 0.67 mg/dL Normal 0.55 - 1.02 [facility] Comment on above: Performed By: #### 2 69352 #### [facility],[address] [place] [address] 73713 GFR/1.73 sq M.predicted among non-blacks MDRD (S/P/Bld) [Vol rate/Area] mL/min/{1.73_m2} Normal 60 - 999 [facility] Comment on above: Performed By: #### 2 30932 #### [facility],[address] [place], [place] [id number] Result Comment: ACCO RDING TO THE NATIONAL KIDNEY DISEASE EDUCATION PROGRAM(NKDE), A NORMAL eGFR IS A VALUE GREATER THAN OR EQUAL TO 60 ML/MIN/1.73 SQ METERS. CHRONIC KIDNEY DISEASE: <60mL/MIN/1.73 SQ METERS KIDNEY FAILURE: <15mL/MIN/1.73 SQ METERS THIS TEST SHOULD ONLY BE USED FOR PATIENTS 18 YEARS OF AGE AND OLDER. Globulin (S) [Mass/Vol] 3.4 g/dL Normal 1.5 - 3.8 [facility] Comment on above: Performed By: #### 2 83349 #### [facility],[address] [place] [address] 71816 Glucose [Mass/Vol] 95 mg/dL Normal 74 - 106 [facility] Comment on above: Performed By: #### 2 27257 #### [facility],[address] [place] [address] 95709 Potassium [Moles/Vol] 4.4 mmol/L Normal 3.5 - 5.1 [facility] Comment on above: Performed By: #### 2 24910 #### [facility],[address] [place] [address] 16931 Protein [Mass/Vol] 7.1 g/dL Normal 6.4 - 8.2 [facility] Comment on above: Performed By: #### 2 91248 #### [facility],[address] [place] [address] 06462 Sodium [Moles/Vol] 137 mmol/L Normal 136 - 145 [facility] Comment on above: Performed By: #### 2 37388 #### [facility],[address] [place] [address] 85886 Urea nitrogen [Mass/Vol] 12 mg/dL Normal 7 - 18 [facility] Comment on above: Performed By: #### 2 22262 #### [facility],[address] [place] [address] 27350 LIPID PROFILEon 01-08-2025 Cholesterol [Mass/Vol] 165 mg/dL Normal 0 - 240 [facility] Comment on above: Performed By: #### 2 63381 #### [facility],[address] [place] [address] 17018 Cholesterol in HDL [Mass/Vol] 54 mg/dL Normal 40 - 60 [facility] Comment on above: Performed By: #### 2 10090 #### [facility],[address] [place] [address] [place] [address] Cholesterol in LDL [Mass/Vol] 87 mg/dL Normal 0 - 129 [facility] Comment on above: Performed By: #### 2 23788 #### [facility],[address] [place] [address] 18478 Cholesterol.total/C holesterol in HDL [Mass ratio] 3.1 {ratio} Normal 0.0 - 5.0 [facility] Comment on above: Performed By: #### 2 61131 #### [facility],[address] [place] [address] 13799 Lipid 1996 panel Normal [facility] Comment on above: Result Comment: LIPI D PROFILE Performed By: #### 2 73129 #### [facility],[address] [place] [address] [place] [address] Triglyceride [Mass/Vol] 119 mg/dL Normal 0 - 150 [facility] Comment on above: Performed By: #### 2 38609 #### [facility],[address] [place] [address] 77519 VITAMIN D, 25 HYDROXYon 03-0 VitD 45.00 ng/mL Normal 30.00 - 100 [facility] Comment on above: Result Comment: 25-O HD3 [...] D2 Not Established Performed By: #### 2 05158 #### [facility],[address] [id number] Sales Enablement Specialist Office Visit Reporton 09-01-2024 Sales Enablement Specialist Office Visit Report [facility] [address] [place] [address], [address] [place] [phone] OFFICE VISIT Date of Service: 09/01/24 MR#: [id number] Acct: [id number] Name: SEAN LILLY Rep #: [id number] : 1985 Provider: Dr. Emeli Beck DO Age/Sex: 39/F Location: [place] Status: Signed Intake Vital Signs 07/26/24 08:34 09/01/24 13:33 09/01/24 13:45 Height 5 ft 6 in 5 ft 6 in 5 ft 6 in Weight: 181 lb BMI 29.2 BP 148/102 H Intake Visit Reasons: HPV+ X2 REFERRAL (PACO GOMES) per triage Repairer And Checker Required: No Is patient in pain?: No Allergies No Known Allergies Allergy (Verified 09/01/24 13:34) Medications ???Medication ???Instructions ???Recorded ???Confirmed ???Type ibuprofen 600 mg tablet 600 mg PO Q6H PRN Pain #60 tabs 02/11/18 09/01/24 Rx aspirin 81 mg chewable tablet 81 mg PO QDAY 09/01/24 09/01/24 History ergocalciferol (vitamin D2) 1,250 1,250 mcg PO QWEEK 09/01/24 09/01/24 History mcg (50,000 unit) capsule (Vitamin D2) spironolactone 50 mg tablet 50 mg PO QDAY 09/01/24 09/01/24 History vitamin B comp and C no.3 15 mg-10 1 cap PO QDAY 09/01/24 09/01/24 History mg-50 mg-5 mg-300 mg capsule (B Complex Plus Vitamin C) Post menopausal: No Patient : No : No Control Method: vasectomy PFSH PFSH Medical History (Updated 09/01/24 @ 14:[address] Emeli Alarcon DO) Factor 5 Leiden mutation, heterozygous Surgical History (Updated 09/01/24 @ 13:40 by Myra Maynard) H/O rhinoplasty History of mandibular surgery History of repair of atrial septal defect Social History (Updated 09/01/24 @ 13:42 by Myra Maynard) adopted: No household members: spouse and children number of children: 2 current occupational status: employed current occupation: [employer] sexually active: Yes Smoking Status: Never smoker alcohol intake: current substance use type: does not use seatbelt use: always do you feel safe at home: Yes additional social history: [employer] History 2 Elective abortions Hx Para 2 Spontaneous abortions Hx # Term Pregnancies Ectopic pregnancies Hx # Pregnancies Multiple births # of living children 2 HPI HPV+ X2 REFERRAL (PACO GOMES) per triage Details: SEAN LILLY is a 39 year old who presents for a colposcopy for persistent + HPV. she has been in a relationship with her x 16 years and prior to the last 2 paps she has never had any abnormalities in her screening tests. Her had a vasectomy and she declines test today. ROS Const ROS Unobtainable: All systems reviewed are unremarkable except as noted in H Resp Resp: Reports system reviewed and no additional complaints, except as documented; Denies cough GI GI: Reports as per HPI Psych Psych: Reports system reviewed and no additional complaints, except as documented Exam Const General: cooperative, healthy appearing, comfortable and no acute distress Resp Effort Inspection: normal respiratory effort General: bimanual renal exam normal bilaterally External Female Exam: normal appearance of the urethra Urethra: normal appearance of the urethra Speculum Exam - Vagina: normal appearance of the vagina Speculum Exam - Cervix: normal appearance of the cervix Bimanual Exam- Adnexa, other: normal adnexae and normal Pelvic Support: normal Skin General: no rashes or lesions noted Psych Appearance: grossly normal Speech and Movement: speech and movement normal Office Procedures Colposcopy Colposcopy Reason for colposcopy: positive HR HPV types Consent Signed: Yes Time out performed: Yes Acetowhite epithelium (cervix): widespread Punctation (cervix): none Mosaicism (cervix): none Abnormal vessels (cervix): 4 o'clock Biopsies (cervix): 4 o'clock biopsy Details: Acetic acid was applid to the cervix. acetowhite transition zone was noted with some atypical appearing vessels at 4:00. This area was biopsied. Silver nitrite was used to create excellent hemostasis. Coding Level of Care Code Off vis,new,level 4 Diagnoses Cervical high risk HPV (human papillomavirus) test positive R87.810 Assessment and Plan Assessment and Plan (1) Cervical high risk HPV (human papillomavirus) test positive: Status: Acute Orders: Orders Colposcopy Today B97.7 - Papillomavirus as the cause of diseases classified elsewhere Plan coloposcopy performed without complications. will call with results. 09/01/24 1411 Date Emeli Alarcon DO [facility] Signature: Date (if applicable) CC: Normal [facility] Surgery Specimen Level Yo 09-01-2024 Surgery Specimen Level IV ---- Patient Age/Sex Location Account Attending Physician ---- SEAN LILLY 39/F LABSPEC [id number] Dr. Emeli Alarcon, Navi ---- Specimen: [id number] Received: 09/01/24 Status: ALYSSA Acuña Num: [id number] Spec Type: CERV Subm Dr: Dr. Emeli Alarcon DO THIS IS A CORRECTED REPORT 09/07/24 HEADER OPERATION: Colposcopy PRE-OP DIAGNOSIS: HPV+ TISSUE SUBMITTED: 4o'clock cervix ---- MICROSCOPIC DIAGNOSIS Cervix, 4o'clock, biopsy: Negative for dysplasia. Acute and chronic inflammation and squamous metaplasia. See comment. VERENA.mr 09/05/2024 COMMENT Immunohistochemistry ([id number]) for surrogate HPV marker (p16) supports the above diagnosis. This case has been reviewed in consultation with Dr. Patrick who concurs with the above diagnosis. IDC:PW MICROSCOPIC DESCRIPTION Slides are reviewed. GROSS DESCRIPTION Received in fixative is one container labeled with the patient's name and designated "4o'clock." The specimen consists of two irregular fragments of light mejia soft tissue that in aggregate measures 0.4 x 0.3 x 0.1 cm. The specimen is totally submitted in one cassette. SJ.mr 09/04/2024 TC:5 CPT:89848 ---- Patient Age/Sex Location Account Attending Physician ---- SEAN LILLY 39/F LABSPEC [id number] Navi Tomas ---- Signed (signature on file) Dr. Ishan Allen MD 09/07/24 1409 ---- Normal [facility] Comment on above: Performed By: #### P ART #### [facility] Laboratory [facility] [place], [address] p16 (initial)on 09-01-2024 p16 (initial) -- ---- Patient Age/Sex Location Account Attending Physician ---- SEAN LILLY 39/F LABSPEC [id number] Dr. Emeli Alarcon, Navi ---- Specimen: [id number] Received: 09/05/24 Status: CAROLYNShoaib Domenico Num: [id number] Spec Type: IMMUNO Subm Dr: Dr. Emeli Alarcon, DO PHYSICIAN INSTITUTION [place] [address] SPECIMEN INFORMATION: Tissue Source: 4o'clock cervix Clinical Info: HPV+ Specimen Number: [id number] CPT code: 93624,07625 METHODOLOGY: Deparaffinized sections of prefer/formalin-fixed tissue or PAP/DQ stained slides are incubated with monoclonal/polyclonal antibodies/oligonucleo tide probes. Localization is made via biotin free immunoperoxidase method. Appropriate controls are performed and reacted as expected. Results on target cell population are indicated in the following table: RESULTS: ANTIBODY / CLONE RESULT P16 (E6H4) positive, rare cells, patchy staining Ki-67 (30-9) positive, basal layer only These tests were developed and their performance characteristics determined by [facility] Laboratory. They may not have been cleared or approved by the U.S. Food and Drug Administration. The FDA has determined that such clearance or approval is not necessary. The above immunohistochemical/du alISH markers are ordered and reviewed by the Pathologist. INTERPRETATION: Cervix, 4o'clock, biopsy: Negative for dysplasia. 09/06/2024 Signed (signature on file) Dr. Ishan Allen MD 09/06/24 0919 ---- Normal [facility] Comment on above: Performed By: #### P P16 #### [facility] Laboratory [facility] [place], [address] FACTOR V LEIDEN/PCRon 2023 FACTOR V LEIDEN PCR REPORT Normal [facility] Comment on above: Order Comment: Speci men Type: BLOOD SPECIMEN Ordering Facility: [facility] Address: [address] [place] [address] Result Comment: Fact or V Leiden PCR Laboratory Accession Number: [id number] Result: HETEROZYGOUS FOR Factor V Leiden Interpretation: [...] blood specimen is evaluated for the c.1601G>A (p.Lct199Yek;[id number]) variant of the F5 gene [RefSeq NM_000130.4; [...] developed and its performance characteristics determined by [facility] Medicine [place] ([facility]). It has not been cleared or approved by the FDA. [facility] is regulated under CLIA as certified to perform high- complexity testing. This test is used for clinical purposes. It should not be regarded as investigational or for research. Testing [place] [address]. CLIA Number: [id number] References: 1) Andres Pinedo, Chay G, Mike Quinn. The genetics of venous thromboembolism. A meta-analysis involving approximately 120,000 cases and 180,000 controls. Thromb Haemost 2009;102(2):360-70. 2) Inherited Thrombophilias in . ACOG Practice Bulletin.No.197.[place] [employer]nec[employer]. Obstet Gynecol 2018;132:e18-34. 3) Tonja LOCO. Factor V Leiden Thrombophilia. Rocío Med.2011;13(1):1-16. 4) Pharmacogenomics summary [email or web address] As reviewed by Radha Renae, PhD, [facility] Performed By: #### F VLCHRISTIAN #### [facility] CLIA [id number] [address] [place], [place] [address] [place] [address] [place] T3Free SerPl-mCncon 05-04-20 23 Free T3 [Mass/Vol] 3.5 pg/mL Normal 2.3-4.1 [facility] Comment on above: Order Comment: Speci men Type: BLOOD SPECIMEN Ordering Facility: [facility] Address: [address] [place] [address] Performed By: #### 3 051-0 #### [facility] CLIA [id number] [facility]ly [facility] [address] [address] [place] Encounters Encounter Date Encounter Type Care Provider Facility Start: 08-31-2025 ambulatory Emeli Riddlekarla:KHARI Start: 06-29-2025 End: 06-29-[address] Emeli Alarcon DO Work Phone: -[facility] Start: 06-29-2025 End: 06-29-[address] Emeli Alarcon DO -[facility] Work Phone: Start: 06-29-2025 End: 06-29-2025 ambulatory Emeli Alarcon Facility:[facility] [place] Start: 06-07-2025 ambulatory [facility] Start: 01-08-2025 End: 01-08-2025 ambulatory [facility] Start: 09-01-2024 End: 09-01-2024 ambulatory Twan Montemayor Facility:[facility] Start: 09-01-2024 End: 09-01-2024 ambulatory Emeli Alarcon Facility:[facility] [place] Start: 07-20-2024 End: 07-20-2024 ambulatory [facility] Start: 07-20-2024 Encounter for gynecological examination (general) (routine) without abnormal findings [facility] Procedures Date Procedure Procedure Detail Performing Clinician Start: 06-29-2025 Screening mammography D ymei Alarcon DO Work Phone: Immunizations Immunization Date Immunization Notes Care Provider Agustin hodge 06-28-2014 measles, mumps and rubella virus vaccine Dr. Emeli Alarcon DO Work Phone: [facility] Payers Date Payer Category Payer Self-pay 2024 Unknown [id number] 1985 Unknown [id number] [id number] 1985 Unknown [id number] 2.16.8 [id number] 1985 Unknown [id number] 2.16.8 [id number] Unknown [id number] 2.16.8 [id number] Unknown [id number] 2.16.8 [id number] Unknown [id number] 2.16.8 [id number] Unknown [id number] 2.16.8 [id number] Social History Date Type Detail Facility Start: 01-09-2025 Tobacco smoking stat [facility] Never smoked tobacco (finding) [facility] Start: 02-10-2018 Alcohol Alcohol [facility] Start: 1985 Sex Assigned At Female [facility] Evaluation note Note Date & Type Note Facility Evaluation note No assessment information availa ble [facility] Work Phone: Reason for referral (narrative) Note Date & Type Note Facility Reason for referral (narrative) No reason for referral information available [facility] Work Phone: Summary Purpose Family History No Family History Records FoundNo Family History Records FoundNo Family History Records Found Advance Directives No Advanced Directives Records FoundNo Advanced Directives Records FoundNo Advanced Directives Records Found Chief Complaint and Reason for Visit Chief Complaint Admit Date screen for breast cancer June 29 12:00pm Additional Source Comments INFORMATION SOURCE (unrecogn ized section and content) DATE CREATED AUTHOR 01/30/2024 [facility] DATE CREATED AUTHOR AUTHOR'S ORGANIZ ATION 06/09/2025 [facility] DATE CREATED AUTHOR AUTHOR'S ORGANIZ ATION 07/07/2025 [facility] Care Teams (unrecognized sec tion and content) Team Status: Active Member Role/Relationship Status Dates Paco GRIFFITH PA-C Primary Care Provider Active Team Status: Inactive Member Role/Relationship Status Dates Dr. Emeli Alarcon DO Attending Provider Activ e Start: June 29, 2025 End: June 29, 2025 Dr. Emeli Alarcon DO Referring Provider Activ e Start: June 29, 2025 End: June 29, 2025 Paco GRIFFITH, PA-C Primary Care Provider Active Start: June 29, 2025 End: June 29, 2025 Goals (unrecognized section and content) Goals may be documented in a n alternate section FOR RECORDS PERTAINING TO PATIENTS WHO ARE [...] BE BASED ON THE PRIMARY CLINICAL RECORDS. [employer] provides no warranty or guarantee of the accuracy or completeness of information in this document.
[2025-09-05 13:08] LABS: HPV APTIMA, High Risk Negative (Negative)
== END | disposition home or self-care (01) ==
LOC: LABSPEC 14:57
PROVIDERS: PCP Family Medicine; Visit Provider Obstetrics & Gynecology
DX: Z12.4 Encounter for screening for malignant neoplasm of cervix (principal)
CPT/HCPCS: 87624; 88175; G0145